=== PATIENT | male | born 1970 | race Caucasian/White ===

== ENCOUNTER 2016-05-07 16:43 | Emergency (ER) | payer OTHER ==
[~2016-05-07] VITALS: Ht 188 cm; Wt 92.2 kg
[~2016-05-07 16:43] MED LIST: ADVIL200 MG PO; AMBIEN10 MG PO; ANTIVERT25 MG PO; BUSPAR15 MG PO; COLACE100 MG PO; DICYCLOMINE HCL10 MG PO; EFFEXOR50 MG PO; FLEXERIL5 MG PO; LORTAB 5-325 M1 EACH PO; MOTRIN600 MG PO; NAPROSYN500 MG PO; SKELAXIN800 MG PO; TRAZODONE HCL50 MG PO; ULTRAM50 MG PO; VICODIN,LORT1 TABLET PO; ZITHROMAX250 MG PO; ZYRTEC10 M2 PO
[2016-05-07 17:09] LABS: MCH 33.1 PG (29.0-34.0); MCHC 33.3 G/DL (30.0-36.0); MCV 99.3 FL (86-99); PLATELET COUNT 154 K/uL (156-360); RBC DIS.WIDTH-SD 46.1 % (39-53); RED BLOOD COUNT 4.23 M/uL (4.00-5.50); WHITE BLOOD COUNT 5.9 K/uL (4.1-10.2)
[2016-05-07 17:21] LABS: CHLORIDE 108 mEq/L (99-109); POTASSIUM 3.8 mEq/L (3.7-5.4); SODIUM 140 mEq/L (136-147)
[2016-05-07 17:23] LABS: GLUCOSE 121 mg/dL (70-99)
[2016-05-07 17:25] LABS: ANION GAP 9 MEQ/L (2-14); TOTAL BILIRUBIN 0.4 mg/dL (0.0-1.0)
[2016-05-07 17:27] LABS: ALKALINE PHOSPHATASE 68 IU/L (3-129); GFR ESTIMATE (CALCULATED) > 59 mL/min/
[2016-05-07 17:28] LABS: UREA NITROGEN (BUN) 10 mg/dL (9-23)
[2016-05-07 18:37] LABS: ADD MIUA? YES; BILIRUBIN NEGATIVE; BLOOD LARGE; COLOR YELLOW ((YELLOW)); GLUCOSE (STRIP) NEGATIVE; KETONES NEGATIVE; LEUKOCYTES TRACE; NITRITE NEGATIVE; PH, URINE 6.5 (5-8); PROTEIN (STRIP) NEGATIVE; SPECIFIC GRAVITY 1.003 (1.000-1.030); UROBILINOGEN 0.2 MG/DL (0.2-1.0)
[2016-05-07 19:32] LABS: WHITE BLOOD CELLS 0-5 /HPF (0-5)
[2016-05-07 19:33] LABS: BACTERIA NONE SEEN; CASTS NONE SEEN /LPF; CRYSTALS NONE SEEN; EPITHELIAL CELLS NONE SEEN; MUCUS NONE SEEN; UCUL ADDED? NO
[2016-05-07] MEDS ORDERED: PERCOCET 5/31 TABLET PO (22:50)
[2016-05-07] MEDS ORDERED: ZOFRAN ODT4 MG PO (22:50)
[2016-05-07 23:03] VITALS: BP 130/84
== END 2016-05-07 23:03 | disposition home or self-care (01) ==
LOC: EME 16:43
DX: K82.9 Disease of gallbladder, unspecified (principal); R10.11 Right upper quadrant pain; F17.200 Nicotine dependence, unspecified, uncomplicated; Z88.0 Allergy status to penicillin
CPT/HCPCS: 74176; 76705; 80053; 81003; 85027; 99281; 99284; J1885

== ENCOUNTER 2016-05-16 06:40 | Emergency (ER) | payer OTHER ==
[~2016-05-16] VITALS: Ht 188 cm; Wt 92.9 kg
[~2016-05-16 06:40] MED LIST changes: +PERCOCET 5/31 TABLET PO; +ZOFRAN ODT4 MG PO
[2016-05-16] MEDS ORDERED: NEURONTIN300 MG PO ×3 (07:31→09:31)
[2016-05-16] MEDS ORDERED: ALEVE220 MG PO (07:38)
[2016-05-16] MEDS ORDERED: HEARTBURN RELIE10 MG PO (07:39)
[2016-05-16 08:20] LABS: HEMATOCRIT 45.7 % (38.0-50.0); MCH 34.1 PG (29.0-34.0); MCHC 34.4 G/DL (30.0-36.0); MCV 99.1 FL (86-99); MEAN PLAT.VOLUME 10.4 uM^3 (9.0-12.4); PLATELET COUNT 145 K/uL (156-360); RBC DIS.WIDTH-CV 13.3 % (11.8-14.6); RBC DIS.WIDTH-SD 47.2 % (39-53); RED BLOOD COUNT 4.61 M/uL (4.00-5.50)
[2016-05-16 08:23] LABS: WHITE BLOOD COUNT 10.3 K/uL (4.1-10.2)
[2016-05-16 08:43] LABS: ANION GAP 7 MEQ/L (2-14); CHLORIDE 108 MEQ/L (99-109); POTASSIUM 4.3 MEQ/L (3.7-5.4); SAMPLE HEMOLYSIS CHECK 0; SAMPLE ICTERIC CHECK 0; SAMPLE LIPEMIA CHECK 0; SODIUM 141 MEQ/L (136-147)
[2016-05-16 08:48] LABS: TROP-I INTERPRETATION NEGATIVE; TROPONIN-I < 0.01 ng/mL (0.0-0.30)
[2016-05-16 08:49] LABS: GFR ESTIMATE (CALCULATED) > 59 mL/min/; GLUCOSE 98 mg/dL (70-99); UREA NITROGEN (BUN) 12 mg/dL (9-23)
[2016-05-16 09:33] VITALS: BP 112/77
== END 2016-05-16 09:32 | disposition home or self-care (01) ==
LOC: EME 06:40
PROVIDERS: Emergency Medicine
DX: R55 Syncope and collapse (principal); G47.00 Insomnia, unspecified; F17.200 Nicotine dependence, unspecified, uncomplicated
CPT/HCPCS: 70450; 80048; 84484; 85027; 93005; 99281; 99285; J7030

== ENCOUNTER 2016-10-07 00:38 | Emergency (ER) | payer OTHER ==
[~2016-10-07] VITALS: Ht 188 cm; Wt 95.6 kg
[~2016-10-07 00:38] MED LIST changes: +ALEVE220 MG PO; +HEARTBURN RELIE10 MG PO; +NEURONTIN300 MG PO
[2016-10-07] MEDS ORDERED: KEFLEX500 MG PO (01:04)
[2016-10-07] MEDS ORDERED: MOTRIN600 MG PO (01:04)
[2016-10-07] MEDS ORDERED: NORCO 5/3251 TABLET PO (01:04)
[2016-10-07 01:09] VITALS: BP 129/91
== END 2016-10-07 01:16 | disposition home or self-care (01) ==
LOC: EME 00:38 → EXP 00:38
DX: K08.89 Other specified disorders of teeth and supporting structures (principal); F17.200 Nicotine dependence, unspecified, uncomplicated
CPT/HCPCS: 99281; 99284